=== PATIENT | male | born 1995 | race American Indian/Alaskan Native ===

== ENCOUNTER 2018-04-16 12:50 | Emergency (ER) | payer MEDICAID ==
[2018-04-16 12:58] VITALS: BP 135/78
[2018-04-16] MEDS ORDERED: FLAGYL PO ONE (13:43)
--- NOTE | 2018-04-16 13:53 | Emergency Department Report ---
ED Male HPI - General Chief complaint: Urogenital-Male Stated complaint: BURNING WHEN URINATING Time Seen by Provider: 04/16/18 13:35 Source: patient Mode of arrival: Ambulatory Limitations: No Limitations - History of Present Illness Initial comments: Seen at [facility] for penile discharge cyst over his little bit with some yellow discharge is improved he says it was checked for STD HIV and syphilis, history for persistent dysuria, he denies lesions denies fever denies back pain denies any groin complaints no draining tracks no tender adenopathy no chancres on the penis -: Gradual discharge, dysuria. denies: swelling, mass, rash, urinary retention, blood in urine, fever, nausea/vomiting, incontinence - Related Data Previous Rx's Medication Instructions Recorded Last Taken Type Doxycycline [Vibramycin CAP] 100 mg PO Q12HR #28 capsule 04/16/18 Unknown Rx Allergies Allergy/AdvReac Type Severity Reaction Status Date / Time No Known Allergies Allergy Unverified 04/16/18 12:58 ED Review of Systems ROS: Stated complaint: BURNING WHEN URINATING Other details as noted in HPI Comment: All other systems reviewed and negative Constitutional: denies: diaphoresis, fever, malaise Eyes: denies: eye discharge, vision change ENT: denies: dental pain, hearing loss, epistaxis Respiratory: denies: shortness of breath, SOB with exertion, SOB at rest, stridor Cardiovascular: denies: chest pain, palpitations, dyspnea on exertion, orthopnea Neurological: denies: headache, weakness, numbness, paresthesias, confusion Hematological/Lymphatic: denies: easy bruising, swollen glands ED Past Medical Hx - Past Medical History Previous Medical History?: No - Surgical History Past Surgical History?: No - Social History Smoking Status: Current Every Day Smoker Substance Use Type: Alcohol, Marijuana - Medications Home Medications: Home Medications Medication Instructions Recorded Confirmed Last Taken Type Doxycycline [Vibramycin CAP] 100 mg PO Q12HR #28 capsule 04/16/18 Unknown Rx ED Physical Exam - General Limitations: No Limitations General appearance: alert, other (nontoxic) - Head Head exam: Present: atraumatic, normocephalic - Neck Neck exam: Present: normal inspection. Absent: tenderness, meningismus - GI/Abdominal GI/Abdominal exam: Present: soft. Absent: distended, tenderness, guarding, rebound, rigid, mass, pulsatile mass - exam: Present: normal inspection. Absent: testicular tenderness, urethral discharge, scrotal swelling External exam: Absent: erythema, swelling, lesions, lacerations, ecchymosis, bleeding - Back Exam Back exam: Present: normal inspection. Absent: CVA tenderness (L), muscle spasm , paraspinal tenderness, vertebral tenderness - Neurological Exam Neurological exam: Present: alert, oriented X3, CN II-XII intact. Absent: motor sensory deficit ED Course Vital Signs 04/16/18 12:54 Temperature 97.3 F L Pulse Rate 67 Respiratory 18 Rate Blood Pressure 135/78 O2 Sat by Pulse 98 Oximetry ED Medical Decision Making - Medical Decision Making Patient was given metronidazole he was informed not to drink for several days he will be given instructions about STD was informed and did verbalize understanding that he will need partners tested and treated, he also states that they did check him for HIV and syphilis at the other facility your coronary him and he says that he will follow-up on that, Critical care attestation.: If time is entered above; I have spent that time in minutes in the direct care of this critically ill patient, excluding procedure time. ED Disposition Clinical Impression: STD (male) Disposition: DC-01 TO HOME OR SELFCARE Is pt being admited?: No Condition: Stable Instructions: Sexually Transmitted Diseases (ED), Safe Sex (ED) Additional Instructions: Return immediately if new alarming symptoms have your partners tested and treated Prescriptions: Doxycycline [Vibramycin CAP] 100 mg PO Q12HR #28 capsule Referrals: PRIMARY CARE, [Primary Care Provider] - 3-5 Days Time of Disposition: 13:56
== END 2018-04-16 14:03 | disposition home or self-care (01) ==
LOC: ED 12:50
DX: A64 Unspecified sexually transmitted disease (principal); F17.200 Nicotine dependence, unspecified, uncomplicated; F12.10 Cannabis abuse, uncomplicated
CPT/HCPCS: 99282